=== PATIENT | female | born 1965 | race Caucasian/White ===

== ENCOUNTER 2020-05-01 18:27 | Emergency (ER) | payer MEDICAID ==
[~2020-05-01] VITALS: Ht 160 cm; Wt 63.6 kg
[2020-05-01] MEDS ORDERED: PB/HYOSCY/ATR/SCOP/LIDO/MAALOX 55 ML BOTTLE PO ONE (20:30)
[2020-05-01 20:34] VITALS: BP 143/84
== END 2020-05-01 21:00 | disposition home or self-care (01) ==
LOC: EMS 18:27
DX: T17.228A Food in pharynx causing other injury, initial encounter (principal); X58.XXXA Exposure to other specified factors, initial encounter; Y93.9 Activity, unspecified; Y92.89 Other specified places as the place of occurrence of the external cause; Y99.8 Other external cause status
CPT/HCPCS: Z7502; Z7610